=== PATIENT | female | born 1975 | race Two or more races ===

== ENCOUNTER 2022-06-21 16:52 | Emergency (ER) | payer OTHER ==
[~2022-06-21] VITALS: Ht 167.6 cm; Wt 113.0 kg
[2022-06-21 18:43] VITALS: BP 184/89
[2022-06-22] MEDS ORDERED: KETOROLAC TROMETH 60MG/2ML VIAL IM ONE (01:30)
[2022-06-22] MEDS ORDERED: CYCL-837 PO (03:12)
[2022-06-22] MEDS ORDERED: IBUP800T27 PO (03:12)
== END 2022-06-22 03:28 | disposition home or self-care (01) ==
LOC: ER 16:52 → EDBD 16:52 → ER 06-22 03:28
DX: M54.50 Low back pain, unspecified (principal); R10.84 Generalized abdominal pain; M54.2 Cervicalgia; Z90.710 Acquired absence of both cervix and uterus; V43.52XA Car driver injured in collision with other type car in traffic accident, initial encounter; Y93.89 Activity, other specified; Y92.488 Other paved roadways as the place of occurrence of the external cause; Y99.8 Other external cause status
CPT/HCPCS: 71046; 72125; 74176; 96372; 99284; J1885